=== PATIENT | female | born 1980 | race Caucasian/White ===

== ENCOUNTER → 2023-03-21 09:33 | Outpatient (BNVA) | payer OTHER, SELFPAY | PROVIDERS: Visit Provider Physician Assistant | DX: S93.692A Other sprain of left foot, initial encounter (principal); Y93.02 Activity, running | CPT/HCPCS: 99204 ==

== ENCOUNTER → 2023-03-28 11:39 | Outpatient (BNVA) | payer OTHER, SELFPAY | PROVIDERS: Visit Provider Internal Medicine | DX: S93.692D Other sprain of left foot, subsequent encounter (principal); Y93.02 Activity, running | CPT/HCPCS: 99213 ==

== ENCOUNTER → 2023-04-04 08:18 | Outpatient (BNVA) | payer OTHER, SELFPAY | PROVIDERS: Visit Provider Internal Medicine | DX: M79.672 Pain in left foot (principal) | CPT/HCPCS: 99213 ==

== ENCOUNTER → 2023-04-18 10:53 | Outpatient (BNVA) | payer OTHER, SELFPAY | PROVIDERS: Visit Provider Internal Medicine | DX: S93.692D Other sprain of left foot, subsequent encounter (principal); Y93.02 Activity, running | CPT/HCPCS: 99213 ==